=== PATIENT | female | born 1960 | race Two or more races ===

== ENCOUNTER 2017-03-08 05:49 | Emergency (ER) | payer OTHER ==
[~2017-03-08] VITALS: Ht 154.9 cm; Wt 62.6 kg
[2017-03-08] MEDS ORDERED: PERCOCET 5-3251 EACH PO (09:25)
== END 2017-03-08 11:01 | disposition home or self-care (01) ==
LOC: ER 05:49
DX: M54.5 Low back pain (principal)

== ENCOUNTER 2017-03-08 10:58 | Outpatient (CLI) | payer OTHER ==
[~2017-03-08 10:58] MED LIST: PERCOCET 5-3251 EACH PO
== END 2017-03-08 12:28 | disposition home or self-care (01) ==
LOC: SONOGRAMA 10:58
DX: R19.03 Right lower quadrant abdominal swelling, mass and lump (principal)